=== PATIENT | male | born 1990 | race Caucasian/White ===

== ENCOUNTER 2021-07-29 14:48 | Emergency (ER) | payer OTHER ==
[~2021-07-29] VITALS: Ht 180.3 cm; Wt 93.0 kg
--- NOTE | 2021-07-29 15:00 | NUR ---
MANUEL [id number] From Home Escorted by JEFFRY Garzon [id number] on "[address] -Took Trazadone last night". On room air, breathing evenly and unlabored. Conncted to the monitor and pulse ox. kept comfortable, will continue to monitor accordingly. Sitter at bedside for constant monitoring.
[2021-07-29 15:47] LABS: BASOPHILS % (AUTO) 0.5 % (0.0-2.0); EOSINOPHILS % (AUTO) 3.3 % (0.0-6.0); HEMATOCRIT 43 % (39-51); HEMOGLOBIN 14.4 g/dL (13.5-17.5); LYMPHOCYTES # (AUTO) 2.6 K/uL (0.8-4.8); MEAN CORPUSCULAR HGB CONC 34 g/dl (31.0-36.0); MEAN CORPUSCULAR VOLUME 90 fL (80-96); MONOCYTES # (AUTO) 0.6 K/uL (0.1-1.30); MONOCYTES % (AUTO) 10.3 % (2.0-12.0); NEUTROPHILS # (AUTO) 2.2 K/uL (1.8-8.9); NEUTROPHILS % (AUTO) 38.9 % (43.0-81.0); PLATELET COUNT (AUTO) 265 K/uL (150-450); RED BLOOD CELL COUNT(AUTO) 4.76 MIL/uL (4.5-6.0); WHITE BLOOD COUNT (AUTO) 5.6 K/uL (4.3-11.0)
[2021-07-29 16:02] LABS: ALANINE AMINOTRANSFERASE 76 U/L (12-78); ALBUMIN 4.3 g/dL (3.4-5.0); ALKALINE PHOSPHATASE 85 U/L (46-116); ASPARTATE AMINOTRANSFERASE 24 U/L (15-37); BILIRUBIN,DIRECT 0.1 mg/dL (0.0-0.2); BILIRUBIN,TOTAL 0.6 mg/dL (0.2-1.0); CALCIUM, SERUM 9.1 mg/dL (8.5-10.1); CARBON DIOXIDE 27 mmol/L (21-32); CHLORIDE 104 mmol/L (98-107); CREATININE 1.4 mg/dL (0.6-1.3); GLUCOSE 93 mg/dL (74-106); POTASSIUM 3.6 mmol/L (3.5-5.1); SODIUM SERUM 139 mmol/L (136-145); TOTAL PROTEIN, SERUM 7.6 g/dL (6.4-8.2); UREA NITROGEN, BLOOD 14 mg/dL (7-18)
[2021-07-29 16:03] LABS: ACETAMINOPHEN < 10 ug/ml (10-30); ALCOHOL, BLOOD < 3 mg/dL (0-0)
--- NOTE | 2021-07-29 16:12 | NUR ---
urine collected and sent to lab.
[2021-07-29 16:30] LABS: BILIRUBIN,URINE SMALL (NEGATIVE); COLOR,URINE YELLOW (YELLOW); LEUKOCYTE ESTERASE ,URINE NEGATIVE (NEGATIVE); NITRITE, URINE NEGATIVE (NEGATIVE); PROTEIN,URINE TRACE mg/dl (NEGATIVE); UGLUCOSE NEGATIVE (NEGATIVE); UROBILINOGEN,URINE 0.2 EU/dL (0.2)
[2021-07-29 16:41] LABS: BACTERIA,URINE RARE /HPF (None Seen); MUCUS,URINE Moderate /LPF (None Seen)
--- NOTE | 2021-07-29 18:37 | NUR ---
CALLED [employer]/JUAN TO COME AND TRY TO BREAK HOLD. ETA IS 1 HOUR
--- NOTE | 2021-07-29 19:01 | NUR ---
CONTACTED [facility], SPOKE WITH MD ARIANNA INFORMED OF INSTRUCTIONS.
--- NOTE | 2021-07-29 21:57 | NUR ---
[facility] FA[facility] IS [phone]. WILL FAX RESULTS NOW.
--- NOTE | 2021-07-29 23:34 | NUR ---
[facility] BY [facility]. UN[address]. # FOR REPORT [phone]
--- NOTE | 2021-07-29 23:37 | NUR ---
[facility] CALLED FOR TRANSPORT ETA 30 MINUTES.
--- NOTE | 2021-07-30 | NUR ---
REPORT GIVEN TO JOHNNY MUNIZ FOR CONTINUATION OF CARE.
[2021-07-30 00:19] VITALS: BP 128/72
--- NOTE | 2021-07-30 00:19 | NUR ---
PATIENT BEING TRANSFERRED IN STABLE CONDITION VIA AMBULANCE
--- NOTE | 2021-07-30 00:22 | NUR ---
[facility] AT BEDSIDE FOR TRANSPORT TO [facility].
== END 2021-07-30 01:48 ==
LOC: ER 14:51
DX: T43.212A Poisoning by selective serotonin and norepinephrine reuptake inhibitors, intentional self-harm, initial encounter (principal); Y92.039 Unspecified place in apartment as the place of occurrence of the external cause; F60.3 Borderline personality disorder; Z20.822 Contact with and (suspected) exposure to COVID-19; R45.851 Suicidal ideations
CPT/HCPCS: 36415; 80048; 80076; 80143; 80307; 80320; 81001; 85025; 87426; 93005; 99285; C9803; G0480